=== PATIENT | male | born 1940 | race Caucasian/White ===

== ENCOUNTER → 2019-08-10 | Day surgery (SDC) | payer OTHER, BC ==
[~2019-08-10] VITALS: Ht 172.7 cm; Wt 73.5 kg
[~2019-08-10] MED LIST: ACETAMINOPHEN325 M1 PO; COLACE 100 MG100 MG PO; HYDROCODON-ACE1 EAC7 PO; LISINOPRIL5 MG PO; MIRALAX17 GM PO; SIMVASTATIN40 MG PO
[2019-08-10 11:00] VITALS: BP 164/75
--- NOTE | 2019-08-10 11:22 | EKG ---
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 : 1940 Requested By: Albin Abel Order Number: [id number] MD: Singh Clayton Measurements Intervals Breeding Rate: 67 P: 39 DC: 171 QRS: -19 QRSD: 88 T: 34 QT: 522 QTc: 551 Interpretive Statements Sinus rhythm Supraventricular bigeminy Borderline left axis deviation Borderline repolarization abnormality No previous ECG available for comparison Electronically Signed On 08-10-2019 11:21:19 CHIEF SCIENTIST by Singh Clayton [email or web address] <ELECTRONICALLY SIGNED> By: Singh Clayton MD 08/10/19 1121 1020 1020 Singh Clayton MD /EPI
[2019-08-10 14:00] VITALS: BP 164/75
--- NOTE | 2019-08-11 17:07 | PATH ---
[facility] [address] [place] [address] PATHOLOGY RPT PROCEDURE Name: MERCEDES DURANTBELLO Room #: REG [facility] [place] M.R.#: [id number] Admission: 08/10/19 Date of : 40 Discharge: Report #: [id number] Path Case #: [id number] [facility] Accession Number: [id number] . 01 Material submitted: . inguinal area - LEFT INGUINAL HERNIA SAC. Modifiers: left . 01 Clinical history: . Unilateral inguinal hernia without obstruction or gangrene . 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 (IUV:sheet finisher; 08/11/2019) MBR 08/11/2019 1543 Local . 02 Electronically signed: . Vidhi Morton MD, Pathologist NPI- [id number] . 01 Gross description: . The specimen is received in formalin, labeled "Bello Meneses", "left inguinal hernia sac". Received is a large sac like segment of glistening, membranous pale [id number] soft tissue, measuring 8.4 x 6.5 x 0.2 cm. No solid masses or nodules are identified. Automotive Heavy [employer]ic sections are submitted in cassette A1.(SNA; 08/10/2019) PRETTY/NIKA 08/10/2019 1747 Local . 02 Pathologist provided ICD-10: K44.9 . 02 CPT . 302945 Specimen Comment: A courtesy copy of this report has been sent to [phone] Specimen Comment: Report sent to Performed at: [address], [place] [id number] MD Jeet Browning MD Phone: [phone] Performed at: [address], [place] [id number] MD Vidhi Morton MD Phone: [phone]
== END | disposition home or self-care (01) ==
LOC: OR 09:56
DX: K40.90 Unilateral inguinal hernia, without obstruction or gangrene, not specified as recurrent (principal); I10 Essential (primary) hypertension; E78.5 Hyperlipidemia, unspecified; G47.30 Sleep apnea, unspecified; Z98.890 Other specified postprocedural states; Z79.899 Other long term (current) drug therapy; Z87.891 Personal history of nicotine dependence; Z85.038 Personal history of other malignant neoplasm of large intestine
CPT/HCPCS: 50010; 50101; 50386; 50417; 50455; 54111; 54118; 56524; 56525; 56526; 62110; 62900; 70005